=== PATIENT | male | born 1990 | race Caucasian/White ===

== ENCOUNTER 2019-02-08 04:35 | Emergency (ER) | payer BC ==
[~2019-02-08] VITALS: Ht 170.2 cm; Wt 120.0 kg
[2019-02-08] MEDS ORDERED: METHYLPREDNISOLONE SOD SUCC 125 MG/2 ML VIAL IV ONE (06:30)
[2019-02-08] MEDS ORDERED: FAMOTIDINE 20MG/2ML VIAL IV ONE (06:30)
[2019-02-08] MEDS ORDERED: DIPHENHYDRAMINE 50MG/ML VIAL IV ONE (06:30)
[2019-02-08 08:00] VITALS: BP 123/58
== END 2019-02-08 08:45 | disposition home or self-care (01) ==
LOC: ER 04:45
DX: T39.315A Adverse effect of propionic acid derivatives, initial encounter (principal); Z88.5 Allergy status to narcotic agent; Z98.890 Other specified postprocedural states; Y92.89 Other specified places as the place of occurrence of the external cause
CPT/HCPCS: 96374; 96375; 99283; J1200; J2930; J3490; Z7610